=== PATIENT | male | born 1985 | race Caucasian/White ===

== ENCOUNTER 2021-03-01 17:51 | Emergency (ER) | payer OTHER ==
[2021-03-01] MEDS ORDERED: IBUPROFEN 600 MG TAB PO STA (18:16)
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
--- NOTE | 2021-03-01 19:06 | XR ---
EXAMINATION TYPE: XR shoulder complete RT DATE OF EXAM: 03/01/2021 COMPARISON: NONE HISTORY: Shoulder pain TECHNIQUE: 2 views FINDINGS: There is fracture of the lateral and of the right clavicle with 90 degree angulation. There is no dislocation at the glenohumeral joint. IMPRESSION: Acute angulated and comminuted fracture of the lateral and of the right clavicle. There i s separation at the coracoclavicular joint.
--- NOTE | 2021-03-01 19:07 | XR ---
EXAMINATION TYPE: XR clavicle RT DATE OF EXAM: 03/01/2021 COMPARISON: NONE HISTORY: Fall. Pain TECHNIQUE: 3 views FINDINGS: There is fracture of the lateral and of the right clavicle 2.5 cm from the AC joint. There is angulation at the fracture site. There is separation of the coracoclavicular joint. The glenohumer al joint is intact. Scapula is intact. IMPRESSION: Angulated fracture of the lateral and of the clavicle. No dislocation.
[2021-03-01 19:44] VITALS: BP 121/78; PULSE 88; RESP 18; TEMP 97.8
== END 2021-03-01 19:38 | disposition home or self-care (01) ==
LOC: EC 17:51
DX: S42.031A Displaced fracture of lateral end of right clavicle, initial encounter for closed fracture (principal); F43.12 Post-traumatic stress disorder, chronic; Z90.89 Acquired absence of other organs; V18.0XXA Pedal cycle driver injured in noncollision transport accident in nontraffic accident, initial encounter; Y93.55 Activity, bike riding
CPT/HCPCS: 99283